=== PATIENT | male | born 1990 | race Caucasian/White ===

== ENCOUNTER → 2021-03-02 08:03 | Outpatient (CLI) | payer SELFPAY ==
[2021-03-03 01:26] LABS: SARS-CoV-2 RNA PCR Negative
== END ==
PROVIDERS: PCP Family Medicine; Visit Provider Physician Assistant
DX: Z20.822 Contact with and (suspected) exposure to COVID-19 (principal)
CPT/HCPCS: C9803; U0003; U0005

== ENCOUNTER 2022-11-26 18:34 | Emergency (ER) | payer OTHER, SELFPAY ==
[2022-11-26 18:44] VITALS: BP 110/69; PULSE 118; RESP 22; TEMP 38.3; O2SAT 97
[2022-11-26] MEDS: AMOXICILLIN 500 MG CAPSULE PO (20:01)
[2022-11-26] MEDS: ACETAMINOPHEN 500 MG TABLET 1000 MG PO (20:01)
[2022-11-26 20:04] VITALS: BP 128/73; PULSE 115; O2SAT 96
--- NOTE | 2022-11-26 20:31 | ED.GENADULT ---
HPI - General Adult General Chief complaint: Fever Stated complaint: fever Time Seen by Provider: 11/26/22 19:29 History of Present Illness HPI narrative: This is a 32-year-old male presenting with 1 day of sore throat. He has been having sore throat with fevers throughout the day. He has been taking Motrin with no relief. No urinary symptoms, cough congestion chest pain difficulty breathing. He has had some abdominal discomfort but it has come and gone is rib resolved at this point. No urinary symptoms. Related Data Allergies Allergy/AdvReac Type Severity Reaction Status Date / Time citalopram Allergy Unknown Other Verified 10/11/22 17:06 doxycycline Allergy Unknown Nausea Verified 10/11/22 17:06 sertraline Allergy Unknown Other Verified 10/11/22 17:06 [facility] Past Medical History Medical History Major depressive disorder, recurrent, moderate Male pattern alopecia Family History Family History Mother Depression Hypertension Father Family history of bipolar disorder Social History Social History Smoking status: Never smoker Tobacco type: e-cigarettes/vaping Alcohol intake: never Substance use: never Substance use type: does not use Lack of Transportation: No Lack of Food: Never True Current Housing: I Have Housing Concerned About Future Housing: No Difficulty Paying Gas/Electric Bills: No Difficulty Paying for Meds: No Currently Unemployed: No Education: Bachelor's Degree Difficulty w/ Childcare or Family Care: No Living arrangements: with family Occupation/Education: occupation Gender identity (if verbalized by the patient): Male Sexual Orientation (if Verbalized by the Patient): Straight or Heterosexual Exam Narrative: APPEARANCE: No apparent distress. well-appearing Head: tonsils are inflamed and erythematous EYES: EOMI, NOSE: Atraumatic NECK: Trachea midline RESPIRATORY: No increased rate of breathing, clear to auscultation CARDIOVASCULAR: RRR, ABDOMINAL: Non-distended , soft nontender no guarding rebound MUSCULOSKELETAl: No obvious deformities NEURO: Alert. Moving 4/4 extremities SKIN:: Warm, dry. Normal color PSYCHIATRIC: Normal affect Course Vital Signs Vital signs: Vital Signs Temperature 101 F H 11/26/22 18:44 Pulse Rate 118 H 11/26/22 18:44 Respiratory Rate 22 H 11/26/22 18:44 Blood Pressure 110/69 11/26/22 18:44 Pulse Oximetry 97 11/26/22 18:44 Oxygen Delivery Room Air 11/26/22 18:44 Temperature 101 F H 11/26/22 18:44 Pulse Rate 115 H 11/26/22 20:04 Respiratory Rate 22 H 11/26/22 18:44 Blood Pressure 128/73 11/26/22 20:04 Pulse Oximetry 96 11/26/22 20:04 Oxygen Delivery Room Air 11/26/22 18:44 Medical Decision Making MDM Narrative Medical decision making narrative: -Presentation: 32-year-old male presenting with fevers and sore throat. Physical exam shows inflamed tonsils without exudates. He is tolerating p.o., handling his own secretions and has no difficulty breathing. 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 Well-appearing. Given return precautions. -RX Motrin, Tylenol, amoxicillin Vital Signs Vital Signs: Vital Signs Temperature 101
[2022-11-26 21:00] VITALS: PULSE 90; RESP 18; TEMP 37.4; O2SAT 98
== END 2022-11-26 21:16 | disposition home or self-care (01) ==
PROVIDERS: Emergency Provider Emergency Medicine; PCP Family Medicine
DX: J02.9 Acute pharyngitis, unspecified (principal); F33.9 Major depressive disorder, recurrent, unspecified; F17.290 Nicotine dependence, other tobacco product, uncomplicated
CPT/HCPCS: 96372; 99283; A9270; J1100

== ENCOUNTER 2024-05-08 08:01 | Emergency (ER) | payer BC, SELFPAY ==
--- NOTE | ~2024-05-08 | XR_ITS ---
EXAMINATION: XR foot LT min 3V DATE: 05/08/2024 08:33 INDICATION: Left foot pain and swelling. TECHNIQUE: 4 views of left foot were obtained. COMPARISON: None. FINDINGS: Alignment is normal. No fracture. There is mild osteoarthritis of first metatarsophalangeal joint. There is an enthesophyte of posterior aspect of calcaneal tuberosity. IMPRESSION: 1. Mild osteoarthritis of first metatarsophalangeal joint. Reviewed, dictated and finalized at location A. WINDS TEACHER
[2024-05-08 08:18] VITALS: BP 128/97; PULSE 85; RESP 16; TEMP 36.4; O2SAT 99
--- NOTE | 2024-05-08 08:19 | ED.LOWEXIN ---
HPI - Extremity Injury (Lower) General Chief Complaint: Extremity Injury, Lower Stated Complaint: LT Foot injury Time Seen by Provider: 05/08/24 08:19 Source: patient, RN notes reviewed and old records reviewed Mode of arrival: ambulatory Limitations: no limitations History of Present Illness HPI Narrative: Patient presents with complaints of left foot pain and swelling. He reports that he slipped 3 days ago, did not fall, but tweaked the foot. He reports that he has had pain to this site before, but it has never lasted this long and typically does not cause swelling. He has been elevating the affected foot and taking Tylenol with minimal relief. He reports that pain kept him awake last night. Pain is in the medial dorsal aspect of the foot. He is able to ambulate, but does say this increases pain. Related Data Home Medications Medication Instructions Recorded Confirmed ergocalciferol (vitamin D2) 1,250 1,250 mcg PO WEEKLY 05/08/24 05/08/24 mcg (50,000 unit) capsule Allergies Allergy/AdvReac Type Severity Reaction Status Date / Time doxycycline AdvReac Intermediate Gastrointestinal Verified 05/08/24 08:24 Upset Review of Systems Review of Systems: All systems reviewed & are unremarkable except as noted in HPI and below Constitutional: Constitutional: Reports no additional constitutional complaints ENT: Reports system reviewed and no additional complaints, except as documented Cardiovascular: Cardiovascular: Reports no additional cardiovascular complaints Respiratory: Respiratory: Reports no additional respiratory complaints Gastrointestinal: Gastrointestinal: Reports no additional gastrointestinal complaints Musculoskeletal: Musculoskeletal: Reports no additional musculoskeletal complaints and Reports as per HPI [facility] Past Medical History Medical History Major depressive disorder, recurrent, moderate Male pattern alopecia Family History Family History Mother Depression Hypertension Father Family history of bipolar disorder Social History Social History Smoking status: Never smoker Tobacco type: e-cigarettes/vaping Alcohol intake: never Substance use: never Substance use type: does not use Lack of Transportation: No Lack of Food: Never True Current Housing: I Have Housing Concerned About Future Housing: No Difficulty Paying Gas/Electric Bills: No Difficulty Paying for Meds: No Currently Unemployed: No Education: Bachelor's Degree Difficulty w/ Childcare or Family Care: No Living arrangements: with family Occupation/Education: occupation Gender identity (if verbalized by the patient): Male Sexual Orientation (if Verbalized by the Patient): Straight or Heterosexual Comments At the time of my signature, I reviewed and agree with the nursing past medical, surgical, social, and family history. There is no relevant family history pertinent to the patient complaint. Exam Const: General: cooperative, no acute distress, alert and awake Orientation/consciousness: oriented to person, oriented to place and oriented to time HENMT: Head: normal to inspection Resp: Effort & Inspection: normal respiratory effort and able to speak in complete sentences Auscultation: clear to auscultation bilaterally, no crackles, no rales, no rhonchi and no wheezes Cardio: Palpation: normal PMI Rate: regular rate Rhythm: regular rhythm Heart sounds: S1 normal heart sound present and S2 normal heart sound present Neuro: General: oriented to person, oriented to place and oriented to time Cranial nerves: Yes CN's II-XII intact bilaterally Extrem: Left lower extremity: foot Details: normal capillary refill, tenderness Location: of the dorsal foot Location: medially, toes with normal ROM, edema Location: of the dorsal foot and vascular exam Details: dorsalis pedis pulse present, posterior tibial pulse present and normal capillary refill; not cool and no cyanosis Psych: Appearance: grossly normal Thought process: Normal thought process present Insight: Good insight present (Psych) Judgement: Good judgement present (Psych) Course Course Level of Care: Express Care Visit Vital Signs Vital signs: Reviewed MDM - Extremity Injury (Lower) MDM Narrative Medical decision making narrative: no acute findings on x-ray. Patient declined steroid burst, states he will take some ibuprofen. Cirilo wrap applied. Patient follow with primary care provider Discharge instructions reviewed with patient, as well as provided in writing per nursing staff. The instructions also include specific and strict return/GO TO THE ER as well as f/u information. All questions have been answered, and the patient deny any further questions with discharge and discharge plan. Some parts of this dictation were generated by voice recognition software and may contain typographical and/or grammatical inaccuracies. Differential Diagnosis Differential diagnosis: Likely other (Gout, foot fracture) Medical Records Attestation: I reviewed the patient's medical records. Imaging Data Attestation: I personally reviewed and interpreted this imaging study as follows: My impression: No acute finding Radiologist's impression: [address] [address] XRay Report Signed Patient: Eugene Mena IV : 1990 MR#: [id number] Age: 34 Acct:[id number] Loc: [facility] ADM Date: 05/08/24Attending Dr: Ordering Physician: Jessica Hall FNP Date of Service: 05/08/24 Procedure(s): XR foot LT min 3V Accession Number(s): [id number] cc: Jessica Hall FNP; Elodia, Jaelyn GARSIA~ EXAMINATION: XR foot LT min 3V DATE: 05/08/2024 08:33 INDICATION: Left foot pain and swelling. TECHNIQUE: 4 views of left foot were obtained. COMPARISON: None. FINDINGS: Alignment is normal. No fracture. There is mild osteoarthritis of first metatarsophalangeal joint. There is an enthesophyte of posterior aspect of calcaneal tuberosity. IMPRESSION: 1. Mild osteoarthritis of first metatarsophalangeal joint. Reviewed, dictated and finalized at location A. GN ENGINEER Dictated By: Star Humphreys MD 05/08/24 0834 Signed By: <Electronically signed by Star Humphreys MD in OV> 05/08/24 0835 Discharge Plan Discharge Clinical Impression: Acute foot pain Qualifiers: Laterality: left Qualified Code(s): M79.672 - Pain in left foot Patient Disposition: Home, Self-Care Condition: Stable Instructions: Antibiotic Form, P.R.I.C.E. Treatment (ED) Additional Instructions: ibuprofen per package instructions as needed for pain and swelling. Continue to elevate the affected extremity when feasible. Follow-up with primary care provider. Emergency department for new or worse symptoms Patient Language: Kazakh Prescriptions: No Action ergocalciferol (vitamin D2) 1,250 mcg (50,000 unit) capsule 1,250 mcg PO WEEKLY Follow-up/Referrals: Elodia,SUN Christy [Primary Care Provider] - 1 Week Time of Disposition: 08:47
== END 2024-05-08 08:49 | disposition home or self-care (01) ==
PROVIDERS: Emergency Provider Nurse Practitioner Family; PCP Physician Assistant
DX: M79.672 Pain in left foot (principal); X50.1XXA Overexertion from prolonged static or awkward postures, initial encounter; L64.9 Androgenic alopecia, unspecified
CPT/HCPCS: 73630; 99213; G0463

== ENCOUNTER 2024-09-21 08:17 | Outpatient (CLI) | payer BC, SELFPAY ==
--- NOTE | ~2024-09-21 | US_ITS ---
US right upper quadrant INDICATION: Elevated liver function tests PROCEDURE: Realtime right upper abdominal ultrasound. COMPARISON: No prior studies for comparison. FINDINGS: Pancreas is not well visualized. Liver echotexture is diffusely increased, consistent with fatty infiltration There is normal directional flow in the portal vein. The gallbladder is normal without stones, gallbladder wall thickening or pericholecystic fluid. Comm on bile duct measures 5 mm. No sonographic King's sign. IMPRESSION: 1: Fatty infiltration of the liver. Reviewed, dictated and finalized at location A.
== END 2024-09-21 08:18 | disposition home or self-care (01) ==
LOC: MICIMG 08:17
PROVIDERS: PCP Physician Assistant; Visit Provider Physician Assistant
DX: R74.01 Elevation of levels of liver transaminase levels (principal); K76.0 Fatty (change of) liver, not elsewhere classified
CPT/HCPCS: 76705